=== PATIENT | female | born 1970 | race Hispanic/Latino ===

== ENCOUNTER 2016-11-15 07:27 | Emergency (ER) | payer OTHER ==
[~2016-11-15] VITALS: Ht 165.1 cm; Wt 104.3 kg
[~2016-11-15 07:27] MED LIST: ANTIVERT 25 MG25 MG PO; CELECOXIB200 M1 PO; DILTIAZEM HCL240 MG PO; ESTRACE 1MG TABL1 MG PO; ESTRACE0.5 MG PO; FENOFIBRIC ACI135 MG PO; FOLIC ACID 1 MG PO; GABAPENTIN300 M2 PO; HYDROMORPHONE HC4 M1 PO; HYDROMORPHONE HY4 MG PO; ISONIAZID300 MG PO; LUPRON DEPOT3.75 MG IM; MEDROL4 M2 PO; METAXALONE800 MG PO; METHOTREXATE2.5 M2 PO; MIRTAZAPINE30 M2 PO; MORPHINE SULFAT15 MG PO; MORPHINE SULFAT60 M4 PO; MS CONTIN60 MG PO; MULTIVITAMIN1 TAB PO; NAPROSYN500 M1 PO; OTEZLA30 M2 PO; PRISTIQ ER100 MG PO; PROAIR HFA8.5 GM INH; PROGESTERONE PO; SILVADENE20 GM TOP; SULFASALAZINE500 M2 PO; TEMAZEPAM30 M1 PO; TEMAZEPAM30 MG PO; VALIUM5 M2 PO; VYTORIN 10 MG-41 TAB PO; ZITHROMAX250 M2 PO; ZOFRAN4 M1 PO
[2016-11-15 07:31] VITALS: BP 141/83
--- NOTE | 2016-11-15 07:45 | ED INFLUENZA/URI COMPLAINT ---
History of Present Illness General Chief Complaint: Upper Respiratory Sx/Fever Stated Complaint: ?URI Source: patient Exam Limitations: no limitations Vital Signs & Intake/Output Vital Signs & Intake/Output Vital Signs Date Time Temp Pulse Resp B/P Pulse O2 O2 Flow FiO2 Ox Delivery Rate 11/15 0731 98.4 106 20 141/83 97 Room Air Allergies Coded Allergies: Penicillins (Intermediate, RASH 07/25/16) Reconcile Medications Apremilast (Otezla) 30 MG TABLET 1 TAB PO BID UNKNOWN (Reported) Azithromycin (Zithromax) 250 MG TABLET 1 DP PO AD BRONCHITIS 2 the first day followed by 1 for days 2-5 Celecoxib 200 MG CAPSULE 1 CAP PO DAILY PRN PAIN (Reported) Desvenlafaxine Succinate (Pristiq ER) 100 MG TAB.ER.24H 1 TAB PO EOD MENTAL HEALTH (Reported) Diazepam (Valium) 5 MG TABLET 1 TAB PO QPM SLEEP (Reported) DILTIAZEM HCL (Diltiazem 24HR ER) 240 MG CAP.ER.24H 1 CAP PO DAILY HEART ( Reported) Ezetimibe/Simvastatin (Vytorin 10 MG-40 MG) 1 TAB TAB 1 TAB PO DAILY CHOLESTEROL (Reported) Gabapentin 300 MG CAPSULE 1 CAP PO TID PRN UNKNOWN (Reported) Hydromorphone HCl 4 MG TABLET 1-2 TAB PO Q4P PRN PAIN (Reported) Mirtazapine 30 MG TABLET 1 TAB PO QPM SLEEP (Reported) Morphine Sulfate 15 MG TAB 1-2 TAB PO Q4-6 PRN PRN PAIN (Reported) Ms Contin (Morphine Sulfate ER) 60 MG TABLET.ER 2 TAB PO BID PAIN (Reported) Robitussin AC (Guaifenesin-Codeine Syrup) 200 MG-20 MG/10 ML LIQUID 10 ML PO Q6 PRN COUGH Sulfasalazine 500 MG TABLET 2 TAB PO BID TB (Reported) Temazepam 30 MG CAPSULE 1 CAP PO QPM SLEEP (Reported) Triage Note: PT STATES SHE HAS BEEN RUNNING A FEVER, SHE IS CONGESTED AND HAS A SORE THROAT SINCE YESTERDAY. PT AFEBRILE IN TRIAGE Triage Nurses Notes Reviewed? yes Onset: Abrupt Duration: day(s): (2) Timing: multiple episodes today Severity: moderate Modifying Factors: Worsens With: other (COUGH). Associated Symptoms: cough, sore throat HPI: This is a 46-year-old female presents via her chief complaint of fever, cough, sore throat and shortness of breath that started yesterday morning. Fever up to 100.6 at home. She was taking Tylenol day yesterday but didn't take it today. She states that when she tries to cough her throat is exquisitely painful. Positive sick contacts with her daughter who is sinusitis. No recent travel. History of latent TB which was previously treated. No high fevers or bodyaches. Past History Travel History Traveled to [place] past 21 day No Medical History Any Pertinent Medical History? 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 No Review of Systems Review of Systems Constitutional: Reports: chills, fever. EENTM: Reports: throat pain. Respiratory: Reports: cough, short of breath, sputum production. Cardiovascular: Denies: chest pain, palpitations. GI: Denies: abdominal pain, diarrhea, vomiting. Genitourinary: Reports: no symptoms. Musculoskeletal: Reports: no symptoms. Skin: Reports: no symptoms. Neurological/Psychological: Reports: no symptoms. Hematologic/Endocrine: Denies: bruising, bleeding, polyuria, polydipsia. Immunologic/Allergic: Denies: splenectomy. All Other Systems: Reviewed and Negative Physical Exam Physical Exam General Appearance: well developed/nourished, alert, awake Head: atraumatic, normal appearance Eyes: Bilateral: normal appearance, PERRL, EOMI. Ears, Nose, Throat: hearing grossly normal, Tympanic normal, pharyngeal erythema Neck: normal inspection, supple, full range of motion Respiratory: normal breath sounds, chest non-tender, no respiratory distress Cardiovascular: regular rate/rhythm Peripheral Pulses: 2+ radial (R), 2+ radial (L) Gastrointestinal: normal bowel sounds, soft, non-tender Back: normal inspection, normal range of motion Extremities: normal inspection, normal capillary refill, normal range of motion, no edema Neurologic/Psych: no motor/sensory deficits, awake, alert, oriented x 3 Skin: intact, normal color, warm/dry Core Measures Severe Sepsis Present: No Septic Shock Present: No Progress Differential Diagnosis: pneumonia, pharyngitis Plan of Care: Orders Procedure Date/time Status THROAT CULTURE W/QUICK STREP 11/15 0734 Active Initial ED EKG: none Departure Departure Time of Disposition: 758 Disposition: HOME OR SELF CARE Condition: Stable Clinical Impression Primary Impression: URI (upper respiratory infection) Referrals: YASIR SZYMANSKI DO (PCP/Family) Additional Instructions: Take ibuprofen as directed for pain and fever. Fill the prescriptions as directed. Departure Forms: Customer Survey General Discharge Information Prescriptions: Current Visit Scripts Azithromycin (Zithromax) 1 DP PO AD #6 TAB 2 the first day followed by 1 for days 2-5 Robitussin AC (Guaifenesin-Codeine Syrup) 10 ML PO Q6 PRN COUGH #150 ML
[2016-11-15] MEDS ORDERED: GUAIFENESIN-COD10 ML PO (08:00)
[2016-11-15] MEDS ORDERED: ZITHROMAX250 M2 PO (08:00)
== END 2016-11-15 08:05 ==
LOC: ERH 07:27
DX: J06.9 Acute upper respiratory infection, unspecified (principal); Z87.891 Personal history of nicotine dependence
CPT/HCPCS: 96372; J1885

== ENCOUNTER 2017-01-17 13:46 | Emergency (ER) | payer OTHER ==
[~2017-01-17] VITALS: Ht 165.1 cm; Wt 102.5 kg
[~2017-01-17 13:46] MED LIST changes: +GUAIFENESIN-COD10 ML PO
--- NOTE | 2017-01-17 15:05 | ED GI/GU/ABDOMINAL COMPLAINT ---
History of Present Illness General Chief Complaint: Low Back Pain/Injury Stated Complaint: L LOWER BACK PAIN RADIATING TO R SIDE Source: patient Exam Limitations: no limitations Vital Signs & Intake/Output Vital Signs & Intake/Output Vital Signs Date Time Temp Pulse Resp B/P Pulse O2 O2 Flow FiO2 Ox Delivery Rate 01/17 1622 99.4 82 20 148/88 96 Room Air 01/17 1525 99 Room Air 01/17 1428 99.2 77 20 153/107 98 Room Air Allergies Coded Allergies: Penicillins (Intermediate, RASH 07/25/16) Reconcile Medications Apremilast (Otezla) 30 MG TABLET 1 TAB PO BID UNKNOWN (Reported) Azithromycin (Zithromax) 250 MG TABLET 1 DP PO AD BRONCHITIS 2 the first day followed by 1 for days 2-5 Celecoxib 200 MG CAPSULE 1 CAP PO DAILY PRN PAIN (Reported) Ciprofloxacin HCl (Cipro) 500 MG TABLET 1 TAB PO BID PRN UTI Desvenlafaxine Succinate (Pristiq ER) 100 MG TAB.ER.24H 1 TAB PO EOD MENTAL HEALTH (Reported) Diazepam (Valium) 5 MG TABLET 1 TAB PO QPM SLEEP (Reported) DILTIAZEM HCL (Diltiazem 24HR ER) 240 MG CAP.ER.24H 1 CAP PO DAILY HEART ( Reported) Ezetimibe/Simvastatin (Vytorin 10 MG-40 MG) 1 TAB TAB 1 TAB PO DAILY CHOLESTEROL (Reported) Gabapentin 300 MG CAPSULE 1 CAP PO TID PRN UNKNOWN (Reported) Hydromorphone HCl 4 MG TABLET 1-2 TAB PO Q4P PRN PAIN (Reported) Ketorolac Tromethamine 10 MG TABLET 1 TAB PO TID PRN PAIN RECEIVED IM IN ER Mirtazapine 30 MG TABLET 1 TAB PO QPM SLEEP (Reported) Morphine Sulfate 15 MG TAB 1-2 TAB PO Q4-6 PRN PRN PAIN (Reported) Ms Contin (Morphine Sulfate ER) 60 MG TABLET.ER 2 TAB PO BID PAIN (Reported) Robitussin AC (Guaifenesin-Codeine Syrup) 200 MG-20 MG/10 ML LIQUID 10 ML PO Q6 PRN COUGH Sulfasalazine 500 MG TABLET 2 TAB PO BID TB (Reported) Temazepam 30 MG CAPSULE 1 CAP PO QPM SLEEP (Reported) Triage Note: RECEIVED 46 YO FEMALE C/O LEFT LOWER BACK PAIN RADIATING TO HIP AND RIGHT LOWER BACK, X 2 TO 3 DAYS. PAIN WORSE WITH ALL MOVEMENT. PT REPORTS URINE IS VERY DARK WITH SOME BURNING WITH URINATION Triage Nurses Notes Reviewed? yes ? N Is pt currently ? No Onset: Gradual Duration: constant Timing: recent history Quality/Severity: burning, moderate Severity Numbers: 5 Radiation: back Activities at Onset: none HPI: Patient is a 46-year-old female with a past medical history of chronic back pain and multiple lumbar spine surgical intervention and lasts surgical intervention was approximately 20 years ago with a lumbar spine fusion where patient states for the past 3-4 days she has been complaining of gradual onset of left-sided back pain and increased frequency of urination and urge of urination and dysuria where she states that today she had a brief episode of paresthesia in the bottom of her foot however this has resolved. Patient denies any mechanism injury denies any abdominal pain fever chills vaginal bleeding or discharge Patient is able tolerate by mouth and is been taking Motrin and Tylenol with minimal relief of symptoms (ENA CHAMPAGNE) Past History Travel History Traveled to [place] past 21 day No Medical History Any Pertinent Medical History? 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 No (ENA CHAMPAGNE) Review of Systems Review of Systems Constitutional: Reports: no symptoms. EENTM: Reports: no symptoms. Respiratory: Reports: no symptoms. Cardiovascular: Reports: no symptoms. GI: Reports: no symptoms. Genitourinary: Reports: see HPI, frequency, pain. Musculoskeletal: Reports: see HPI, back pain. Skin: Reports: no symptoms. Neurological/Psychological: Reports: see HPI, paresthesia. Hematologic/Endocrine: Reports: no symptoms. Immunologic/Allergic: Reports: no symptoms. All Other Systems: Reviewed and Negative (ENA CHAMPAGNE) Physical Exam Physical Exam General Appearance: no apparent distress, alert, comfortable Gastrointestinal: normal bowel sounds, soft, non-tender Comments: Well-developed well-nourished person in no acute distress HEENT: Normal EENT exam, Neck: Supple, no lymphadenopathy, normal range of motion without pain or tenderness Back: Left lateral muscular point tenderness, decreased active range of motion noted No CVA tenderness Cardiovascular: Regular rate and rhythms no murmurs rubs or gallops, normal JVP Respiratory: Chest nontender. No respiratory distress.breath sounds clear to auscultation bilaterally Abdomen: Soft, nontender nondistended, no appreciable organomegaly. Normal bowel sounds. No ascites Extremity: No edema, no calf tenderness to palpation, normal and equal pulses. Bilateral lower extremity myotomes dermatomes intact Neuro: Alert oriented x3, motor sensory normal, Skin: No appreciable rash on exposed skin, skin is warm and dry. Psych: Mood and affect is normal, memory and judgment is normal. Core Measures ACS in differential dx? No Severe Sepsis Present: No Septic Shock Present: No (INESSA AVALOS,ENA) Progress Differential Diagnosis: AAA, AMI, appendicitis, biliary colic, bowel obstruction , colon cancer, cholecystitis, diverticulitis, ectopic , endometritis, esophageal varices, gastritis, hepatitis, hernia, hemorrhoids, ischemic bowel, inflamm bowel dis, intrauterine , kidney stone, Joy-Shlomo tear, ovarian cyst, ovarian torsion, pancreatitis, PID/cervicitis, peptic ulcer, PUD/ GERD, perforated viscous, SBO, threatened AB, UTI/pyelo Plan of Care: Orders Procedure Date/time Status COMPREHENSIVE METABOLIC PANEL 01/17 1532 Complete CBC WITHOUT DIFFERENTIAL 01/17 1532 Complete CULTURE,URINE 01/17 1430 Active URINE 01/17 1430 Complete URINALYSIS 01/17 1430 Complete Current Medications Sig/Fátima Start time Last Medication Dose Stop Time Status Admin Ketorolac 30 MG ONCE ONE 01/17 1545 CAN Tromethamine 01/17 1546 (Toradol) Laboratory Tests 01/17/17 1551: Anion Gap 13, Estimated GFR > 60, BUN/Creatinine Ratio 20.0, Glucose 102 H, Calcium 9.5, Total Bilirubin 0.4, AST 20, ALT 37, Alkaline Phosphatase 97, Total Protein 8.0, Albumin 4.5, Globulin 3.5, Albumin/Globulin Ratio 1.3, CBC w Diff NO MAN DIFF REQ, RBC 5.11, MCV 85.0, MCH 28.1, RDW 13.7, MPV 7.2 L, Gran % 67.0 , Lymphocytes % 25.2, Monocytes % 6.8, Eosinophils % 0.2, Basophils % 0.8, Absolute Granulocytes 6.1, Absolute Lymphocytes 2.3, Absolute Monocytes 0.6, Absolute Eosinophils 0, Absolute Basophils 0.1, PUBS MCHC 33.1, Urinalysis LIGHT H, Urine Color YEL, Urine Clarity HAZY H, Urine pH 6.0, Ur Specific [place] 1.020, Urine Protein NEG, Urine Ketones NEG, Urine Nitrite NEG, Urine Bilirubin NEG, Urine Urobilinogen 0.2, Ur Leukocyte Esterase SMALL H, Ur Microscopic SEDIMENT EXAMINED, Urine RBC RARE, Urine WBC 3-5 H, Ur Epithelial Cells MOD H, Urine Bacteria MOD H, Urine Mucus MOD H, Urine Hemoglobin NEG, Urine Glucose NEG, Urine Test NEGATIVE Microbiology 01/17 1551 URINE ROUT: Urine Culture - RECD Patient on examination had no abdominal pain on palpation Patient has no CVA tenderness however patient does have reproducible pain upon lumbar spine movements and left lateral muscular point tenderness Patient does have urinary tract symptoms and which cultures pending My suspicion of pyelonephritis is low however patient will be treated with ciprofloxacin for UTI Upon discharge patient looks well no apparent distress and will comply with discharge instructions and had no questions (ENA CHAMPAGNE) Initial ED EKG: none (ENA CHAMPAGNE) Departure Departure Disposition: HOME OR SELF CARE Condition: Stable Clinical Impression Primary Impression: UTI (urinary tract infection) Secondary Impressions: Back pain Referrals: YASIR SZYMANSKI DO (PCP/Family) Additional Instructions: As discussed begin the prescription of ciprofloxacin as directed for the full course, begin the prescription ketorolac for pain and inflammation. In 5 days follow-up with your BULK RECEIVER for further evaluation treatment. If symptoms worsen return to emergency room. Begin icing the back directly 20 minutes every 2 hours for pain and inflammation. Prescription is waiting at [facility] pharmacy IN [place]. 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 I have also reviewed all the pertinent lab results and diagnostic results. I agree with the findings and the plan of care as documented in the PA's/SCOOPING MACHINE TENDER's documentation. [X] I have reviewed the ED Record and agree with the PA's/SCOOPING MACHINE TENDER's documentation. [] Additions or exceptions (if any) to the PAs/SCOOPING MACHINE TENDER's note and plan are summarized below: [] (SURJIT TEMPLETON,HANNAH)
[2017-01-17 16:08] LABS: ABSOLUTE BASOPHIL COUNT 0.1 /CUMM (0.0-0.2); ABSOLUTE EOSINOPHIL COUNT 0 /CUMM (0.0-0.7); ABSOLUTE GRANULOCYTE CT 6.1 /CUMM (1.4-6.5); ABSOLUTE LYMPH COUNT 2.3 /CUMM (1.2-3.4); ABSOLUTE MONOCYTE COUNT 0.6 /CUMM (0.10-0.60); BASOPHIL % 0.8 % (0.0-2.0); EOSINOPHIL % 0.2 % (0-5); HEMATOCRIT 43.4 % (37-47); MEAN CORPUSCULAR HGB 28.1 PG (27.0-31.0); MEAN CORPUSCULAR HGB CONC 33.1 G/DL (33.0-37.0); MEAN PLATELET VOLUME 7.2 FL (7.4-10.4); PLATELET COUNT 317 /CUMM (130-400); RBC DISTRIBUTION WIDTH 13.7 % (11.5-14.5); RED BLOOD CELL CT 5.11 /CUMM (4.20-5.40)
[2017-01-17 16:22] VITALS: BP 148/88
[2017-01-17] MEDS ORDERED: CIPRO500 M1 PO (16:39)
[2017-01-17] MEDS ORDERED: KETOROLAC TROME10 M1 PO (16:39)
== END 2017-01-17 16:48 ==
LOC: ERH 13:46
PROVIDERS: Physician Assistant
DX: N39.0 Urinary tract infection, site not specified (principal)
CPT/HCPCS: 81001; 81025; 87086; 96374; J1885

== ENCOUNTER 2017-11-20 20:14 | Emergency (ER) | payer OTHER ==
[~2017-11-20 20:14] MED LIST changes: +CIPRO500 M1 PO; +KETOROLAC TROME10 M1 PO
[2017-11-20 21:35] LABS: ABSOLUTE BASOPHIL COUNT 0 /CUMM (0.0-0.2); ABSOLUTE EOSINOPHIL COUNT 0.1 /CUMM (0.0-0.7); ABSOLUTE GRANULOCYTE CT 2.9 /CUMM (1.4-6.5); ABSOLUTE LYMPH COUNT 4.2 /CUMM (1.2-3.4); ABSOLUTE MONOCYTE COUNT 0.5 /CUMM (0.10-0.60); BASOPHIL % 0.6 % (0.0-2.0); EOSINOPHIL % 1.1 % (0-5); GRANULOCYTE % 37.9 % (42.2-75.2); HEMATOCRIT 41.9 % (37-47); MEAN CORPUSCULAR HGB 28.3 PG (27.0-31.0); MEAN CORPUSCULAR HGB CONC 33.6 G/DL (33.0-37.0); MEAN CORPUSCULAR VOLUME 84.1 FL (81.0-99.0); MEAN PLATELET VOLUME 6.5 FL (7.4-10.4); PLATELET COUNT 371 /CUMM (130-400); RBC DISTRIBUTION WIDTH 13.4 % (11.5-14.5); RED BLOOD CELL CT 4.98 /CUMM (4.20-5.40); WHITE BLOOD CELL COUNT 7.7 /CUMM (4.8-10.8)
--- NOTE | 2017-11-20 21:41 | RADIOLOGY REPORT ---
EXAMINATION: XR CHEST CLINICAL INFORMATION: Compromised immune system. Pneumonia. COMPARISON: Chest radiography 07/01/2016. TECHNIQUE: 2 views of the chest were obtained. FINDINGS: No new significant abnormality is noted involving the heart, lungs, mediastinum, bony thorax or soft tissues. IMPRESSION: No evidence of pneumonia. No significant interval change compared to prior chest radiography.
--- NOTE | 2017-11-20 22:09 | ED INFLUENZA/URI COMPLAINT ---
History of Present Illness General Chief Complaint: General Adult Stated Complaint: "I HAVE LATEN TB" Source: patient, old records Exam Limitations: no limitations Vital Signs & Intake/Output Vital Signs & Intake/Output Vital Signs Date Time Temp Pulse Resp B/P B/P Pulse O2 O2 Flow FiO2 Mean Ox Delivery Rate 11/20 2137 98 11/20 2028 98.6 79 22 156/97 96 Allergies Coded Allergies: Penicillins (Intermediate, RASH 07/25/16) Reconcile Medications Apremilast (Otezla) 30 MG TABLET 1 TAB PO BID UNKNOWN (Reported) Azithromycin (Zithromax) 250 MG TABLET 1 DP PO AD BRONCHITIS 2 the first day followed by 1 for days 2-5 Celecoxib 200 MG CAPSULE 1 CAP PO DAILY PRN PAIN (Reported) Ciprofloxacin HCl (Cipro) 500 MG TABLET 1 TAB PO BID PRN UTI Desvenlafaxine Succinate (Pristiq ER) 100 MG TAB.ER.24H 1 TAB PO EOD MENTAL HEALTH (Reported) Diazepam (Valium) 5 MG TABLET 1 TAB PO QPM SLEEP (Reported) DILTIAZEM HCL (Diltiazem 24HR ER) 240 MG CAP.ER.24H 1 CAP PO DAILY HEART ( Reported) Ezetimibe/Simvastatin (Vytorin 10 MG-40 MG) 1 TAB TAB 1 TAB PO DAILY CHOLESTEROL (Reported) Gabapentin 300 MG CAPSULE 1 CAP PO TID PRN UNKNOWN (Reported) Hydromorphone HCl 4 MG TABLET 1-2 TAB PO Q4P PRN PAIN (Reported) Ketorolac Tromethamine 10 MG TABLET 1 TAB PO TID PRN PAIN RECEIVED IM IN ER Mirtazapine 30 MG TABLET 1 TAB PO QPM SLEEP (Reported) Morphine Sulfate 15 MG TAB 1-2 TAB PO Q4-6 PRN PRN PAIN (Reported) Ms Contin (Morphine Sulfate ER) 60 MG TABLET.ER 2 TAB PO BID PAIN (Reported) Robitussin AC (Guaifenesin-Codeine Syrup) 200 MG-20 MG/10 ML LIQUID 10 ML PO Q6 PRN COUGH Sulfasalazine 500 MG TABLET 2 TAB PO BID TB (Reported) Temazepam 30 MG CAPSULE 1 CAP PO QPM SLEEP (Reported) Triage Note: PER PT RECIEVED CENZIA X 2 ON WEDNESDAY WOKE UP THIS AM WITH CHESST DISCOMFORT, AND FEELING RUN DOWN ? OF FEVER, PT HAS LATENT TB X 5 YRS AND WAS TOLD CENZIA CAN LOWER IMMUNE SYSTEM Triage Nurses Notes Reviewed? yes Onset: 2 days Duration: day(s):, constant, continues in ED Timing: recent history Severity: moderate Prior Episodes/Possible Cause: illness exposure No Modifying Factors: none Associated Symptoms: cough, fever/chills, lightheadedness, muscle aches, nasal congestion, nasal drainage LMP (ages 10-50): post menopausal : No Patient currently breastfeeds: No HPI: 5 days prior to admission patient received 2 injections for psoriatic arthritis (braulio). 2 days prior to admission patient complains of nasal congestion nonproductive cough anorexia myalgia chills chest discomfort with cough similar to previous pneumonia and intrascapular pain. She denies fever shortness breath headache dysuria rash bleeding. Past History Travel History Traveled to [place] past 21 day No Medical History Any Pertinent Medical History? 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 No Review of Systems Review of Systems Constitutional: Reports: see HPI, chills, malaise. EENTM: Reports: see HPI, nasal congestion, throat pain. Respiratory: Reports: see HPI, cough. Denies: sputum production. Cardiovascular: Reports: no symptoms. GI: Reports: see HPI. Genitourinary: Reports: no symptoms. Musculoskeletal: Reports: see HPI, muscle pain. Skin: Reports: no symptoms. Neurological/Psychological: Reports: no symptoms. Hematologic/Endocrine: Reports: no symptoms. Immunologic/Allergic: Reports: see HPI, other. All Other Systems: Reviewed and Negative Physical Exam Physical Exam General Appearance: well developed/nourished, alert, awake, anxious, mild distress, obese Head: atraumatic, normal appearance Eyes: Bilateral: normal appearance, PERRL, EOMI. Ears, Nose, Throat: moist mucous membrane, Tympanic normal, nasal congestion, nasal drainage, pharyngeal erythema Neck: normal inspection, supple, full range of motion, trachea midline, lymphadenopathy (R), lymphadenopathy (L) Respiratory: normal breath sounds, chest non-tender, no respiratory distress, quiet respiration, lungs clear Cardiovascular: regular rate/rhythm, normal peripheral pulses, norml femoral pulses equa Peripheral Pulses: 4+ carotid (R), 4+ carotid (L) Gastrointestinal: normal bowel sounds, soft, non-tender, no organomegaly Back: normal inspection, normal range of motion, no vertebral tenderness Extremities: normal inspection, normal capillary refill, normal range of motion, no edema Neurologic/Psych: no motor/sensory deficits, awake, alert, oriented x 3, normal gait, normal mood/affect, microsoft bi architect II-XII nml as tested Reflexes: 2+: bicep (R), bicep (L). Skin: intact, normal color, warm/dry Lymphatic: adenopathy Core Measures Sepsis Present: No Sepsis Focused Exam Completed? No Progress Differential Diagnosis: influenza, pneumonia, pharyngitis, sinusitis Plan of Care: Orders Procedure Date/time Status Add-on Test (ER Only) 11/20 2141 Active EKG 11/20 2141 Active TROPONIN LEVEL 11/20 2124 Complete RAPID VIRAL INFLUENZA A 11/20 2113 Complete COMPREHENSIVE METABOLIC PANEL 11/20 2113 Complete CBC WITHOUT DIFFERENTIAL 11/20 2113 Complete Current Medications Sig/Fátima Start time Last Medication Dose Stop Time Status Admin Ibuprofen 600 MG ONCE ONE 11/20 2229 AC (Motrin) 11/20 2230 Oseltamivir Phosphate 75 MG ONCE ONE 11/20 2229 UNVr (Tamiflu 75MG) 11/20 2230 Prednisone 60 MG ONCE ONE 11/20 2229 AC 11/20 2230 Laboratory Tests 11/20/172124: Anion Gap 11, Estimated GFR > 60, BUN/Creatinine Ratio 23.3, Glucose 108 H, Calcium 9.7, Total Bilirubin 0.2, AST 42 H, ALT 82 H, Alkaline Phosphatase 115 , Troponin I < 0.01, Total Protein 7.7, Albumin 4.7, Globulin 3.0, Albumin/ Globulin Ratio 1.6, CBC w Diff NO MAN DIFF REQ, RBC 4.98, MCV 84.1, MCH 28.3, MCHC 33.6, RDW 13.4, MPV 6.5 L, Gran % 37.9 L, Lymphocytes % 54.0 H, Monocytes % 6.4, Eosinophils % 1.1, Basophils % 0.6, Absolute Granulocytes 2.9, Absolute Lymphocytes 4.2 H, Absolute Monocytes 0.5, Absolute Eosinophils 0.1, Absolute Basophils 0 Microbiology 11/20 2136 NASOPHARYN: Influenza Virus A & B Rapid Smear - COMP Diagnostic Imaging: Viewed by Me: Radiology Read. Discussed w/RAD: Radiology Read. CXR Impression: no acute abnormality, no infiltrates, normal size heart, normal mediastinum Initial ED EKG: normal axis, normal intervals, normal p-waves, normal QRS complex, normal sinus rhythm, no ST T wave changes Rhythm Strip: normal sinus rhythm Departure Departure Time of Disposition: 2225 Disposition: HOME OR SELF CARE Condition: Stable Clinical Impression Primary Impression: Acute viral syndrome Referrals: Sy Martinez DO (PCP/Family) Departure Forms: Customer Survey General Discharge Information Prescriptions: Current Visit Scripts Oseltamivir Phosphate (Tamiflu) 1 CAP PO BID #10 CAP Albuterol Sulfate (Proair Hfa) 2 PUF INH Q4-6 PRN PRN cough, sob #1 INHAL Codeine Phosphate/Guaifenesi (Cheratussin AC Syrup) 5-10 ML PO Q6P PRN cough #240 ML Ibuprofen 1 TAB PO Q6PRN PRN pain #50 TAB with food
[2017-11-20] MEDS ORDERED: PROAIR HFA8.5 GM INH (22:28)
[2017-11-20] MEDS ORDERED: CHERATUSSIN AC118 M1 PO (22:28)
[2017-11-20] MEDS ORDERED: TAMIFLU75 M1 PO (22:28)
[2017-11-20] MEDS ORDERED: IBUPROFEN600 M1 PO (22:28)
[2017-11-20 22:37] VITALS: BP 125/71
== END 2017-11-20 22:44 ==
LOC: ERH 20:14
PROVIDERS: Emergency Medicine
DX: B34.9 Viral infection, unspecified (principal)
CPT/HCPCS: 1263; 71046; 87804; 87804-59; 93005; 93010

== ENCOUNTER 2017-11-23 10:17 | Emergency (ER) | payer OTHER ==
[~2017-11-23] VITALS: Ht 165.1 cm; Wt 104.3 kg
[~2017-11-23 10:17] MED LIST changes: +CHERATUSSIN AC118 M1 PO; +IBUPROFEN600 M1 PO; +TAMIFLU75 M1 PO
--- NOTE | 2017-11-23 13:05 | ED GENERAL ADULT ---
History of Present Illness General Chief Complaint: General Adult Stated Complaint: COUGHING UP BLOOD Source: patient Exam Limitations: no limitations Vital Signs & Intake/Output Vital Signs & Intake/Output Vital Signs Date Time Temp Pulse Resp B/P B/P Pulse O2 O2 Flow FiO2 Mean Ox Delivery Rate 11/23 1418 98.0 88 18 121/70 98 Room Air 11/23 1039 97.6 91 18 142/89 97 Room Air Room Air Allergies Coded Allergies: Penicillins (Intermediate, RASH 11/23/17) Reconcile Medications Albuterol Sulfate (Proair Hfa) 90 MCG HFA.AER.AD 2 PUF INH Q4-6 PRN PRN cough, sob Apremilast (Otezla) 30 MG TABLET 1 TAB PO BID UNKNOWN (Reported) Azithromycin (Zithromax) 250 MG TABLET 1 DP PO AD BRONCHITIS 2 the first day followed by 1 for days 2-5 Azithromycin (Zithromax) 250 MG TABLET 1 DP PO AD bronchitis 2 the first day followed by 1 for days 2-5 Celecoxib 200 MG CAPSULE 1 CAP PO DAILY PRN PAIN (Reported) Ciprofloxacin HCl (Cipro) 500 MG TABLET 1 TAB PO BID PRN UTI Codeine Phosphate/Guaifenesi (Cheratussin AC Syrup) 10 MG-100 MG/5 ML LIQUID 5 -10 ML PO Q6P PRN cough Desvenlafaxine Succinate (Pristiq ER) 100 MG TAB.ER.24H 1 TAB PO EOD MENTAL HEALTH (Reported) Diazepam (Valium) 5 MG TABLET 1 TAB PO QPM SLEEP (Reported) DILTIAZEM HCL (Diltiazem 24HR ER) 240 MG CAP.ER.24H 1 CAP PO DAILY HEART ( Reported) Ezetimibe/Simvastatin (Vytorin 10 MG-40 MG) 1 TAB TAB 1 TAB PO DAILY CHOLESTEROL (Reported) Gabapentin 300 MG CAPSULE 1 CAP PO TID PRN UNKNOWN (Reported) Hydromorphone HCl 4 MG TABLET 1-2 TAB PO Q4P PRN PAIN (Reported) Ibuprofen 600 MG TABLET 1 TAB PO Q6PRN PRN pain with food Ketorolac Tromethamine 10 MG TABLET 1 TAB PO TID PRN PAIN RECEIVED IM IN ER Mirtazapine 30 MG TABLET 1 TAB PO QPM SLEEP (Reported) Morphine Sulfate 15 MG TAB 1-2 TAB PO Q4-6 PRN PRN PAIN (Reported) Ms Contin (Morphine Sulfate ER) 60 MG TABLET.ER 2 TAB PO BID PAIN (Reported) Oseltamivir Phosphate (Tamiflu) 75 MG CAPSULE 1 CAP PO BID influenza Prednisone 50 MG TABLET 1 TAB PO DAILY bronchitis Robitussin AC (Guaifenesin-Codeine Syrup) 200 MG-20 MG/10 ML LIQUID 10 ML PO Q6 PRN COUGH Sulfasalazine 500 MG TABLET 2 TAB PO BID TB (Reported) Temazepam 30 MG CAPSULE 1 CAP PO QPM SLEEP (Reported) Triage Note: PT TO ED WITH C/O "MY LUNGS WERE HURTING CAME IN ON WEDNESDAY, HAD TREATMENTS, YESTERDAY WOKE UP WORSE COUGH CONGESTION, HAD NEGATIVE FLU ON WEDNESDAY". TODAY COUGHING UP BLOOD. Triage Nurses Notes Reviewed? yes Onset: Abrupt Duration: day(s): (4), constant Timing: recent history Injury Environment: home No Modifying Factors: none HPI: 47-year-old female that was recently started on cimzia for her psoriatic arthritis this past started off in chest pain this past Wednesday. She reports that she's been coughing up blood. Denies any vomiting. Denies any fever. Nothing seems to make the symptoms better or worse. Denies any other associated symptoms. She reports that she has a history of latent tuberculosis that was treated some time back. (Sidney Rollins) Past History Travel History Traveled to [place] past 21 day No Medical History Any Pertinent Medical History? see below for history Neurological: NONE EENT: NONE Cardiovascular: hypertension, hyperlipidemia Respiratory: LATENT TB - treated 2 years ago Gastrointestinal: NONE Hepatic: NONE Renal: NONE Musculoskeletal: psoariatic arthritis, COMPRESSED DISKS Psychiatric: NONE Endocrine: NONE Blood Disorders: NONE Cancer(s): NONE REGISTERED PHARMACIST/Reproductive: NONE Other Medical Hx: PSORIATIC ARTHRITIS, LATENT TB Surgical History Surgical History: GASTRIC BANDING LOW BACK SURGERY 2 back surgeries - discectomy , fusion Psychosocial History What is your primary language Serbian Tobacco Use: Quit >30 days ago ETOH Use: denies use Illicit Drug Use: denies illicit drug use Family History Hx Contributory? No (Sidney Rollins) Review of Systems Review of Systems Constitutional: Reports: no symptoms. EENTM: Reports: no symptoms. Respiratory: Reports: see HPI. Cardiovascular: Reports: no symptoms. GI: Reports: no symptoms. Genitourinary: Reports: no symptoms. Musculoskeletal: Reports: no symptoms. Skin: Reports: no symptoms. Neurological/Psychological: Reports: no symptoms. Hematologic/Endocrine: Reports: see HPI. Immunologic/Allergic: Reports: no symptoms. All Other Systems: Reviewed and Negative (Sidney Rollins) Physical Exam Physical Exam General Appearance: well developed/nourished, no apparent distress, alert, awake Head: atraumatic, normal appearance Eyes: Bilateral: normal appearance, EOMI. Ears, Nose, Throat: normal ENT inspection, hearing grossly normal Neck: normal inspection Respiratory: normal breath sounds, no respiratory distress Cardiovascular: regular rate/rhythm Back: normal inspection Extremities: normal inspection Neurologic/Psych: awake, alert, oriented x 3, normal gait Skin: intact, normal color Core Measures ACS in differential dx? No CVA/TIA Diagnosis: No Sepsis Present: No Sepsis Focused Exam Completed? No (Sidney Rollins) Progress Differential Diagnoses I considered the following diagnoses in my evaluation of the patient: Pulmonary embolism, pneumonia, tuberculosis, vasculitis, Plan of Care: Orders Procedure Date/time Status TROPONIN LEVEL 11/23 1259 Complete D-DIMER 11/23 1259 Complete COMPREHENSIVE METABOLIC PANEL 11/23 1259 Complete CBC WITHOUT DIFFERENTIAL 11/23 1259 Complete EKG 11/23 1259 Active Laboratory Tests 11/23/17 1349: Anion Gap 8, Estimated GFR > 60, BUN/Creatinine Ratio 18.6, Glucose 97, Calcium 9.9, Total Bilirubin 0.3, AST 15, ALT 41, Alkaline Phosphatase 90, Troponin I < 0.01, Total Protein 6.9, Albumin 4.2, Globulin 2.7, Albumin/Globulin Ratio 1.6, D-Dimer High Sensitivty < 200, CBC w Diff NO MAN DIFF REQ, RBC 4.80, MCV 84.4, MCH 28.3, MCHC 33.5, RDW 13.4, MPV 6.4 L, Gran % 45.5, Lymphocytes % 46.1, Monocytes % 6.3, Eosinophils % 1.3, Basophils % 0.8, Absolute Granulocytes 3.2, Absolute Lymphocytes 3.2, Absolute Monocytes 0.4, Absolute Eosinophils 0.1, Absolute Basophils 0.1 Initial ED EKG: normal sinus rhythm, rate (69) Comments: 11/23/2017 3:14:45 PM I spoke with the patient's head bookkeeper Dr. curtis . Patient had a negative quantitative serum cold tests a month ago on 10/21/2017. I spoke with DrQuang from [facility] as well as Dr. kay. [facility] MD is also in agreement is that this is a very low risk for tuberculosis and patient does not need to be in isolation precautions and from the standpoint of TB does not require further workup. D-dimer negative. Patient's symptoms are likely consistent with bronchitis. Started on Z-Mark and prednisone. Follow-up with PCP. Negative flu swab. Patient understands and agrees with plan of care. (Norris AVALOS,Sidney) Departure Departure Disposition: HOME OR SELF CARE Condition: Stable Clinical Impression Primary Impression: Bronchitis Referrals: Sy Martinez DO (PCP/Family) Additional Instructions: Take prednisone and Z-Mark as prescribed. Follow-up with your primary care doctor. Return if any other concerns worsening symptoms. Please go over all results of today's visit with your primary care doctor. Contact your primary care doctor to let them know you were here in the emergency room. There may be nonspecific findings which may not be related to your visit today here in the emergency room but may require further evaluation and chronic monitoring by your primary care doctor. If you had a laceration today the chance of foreign body always remains. You should follow-up with your primary care doctor for recheck in 3-5 days for a wound check. If you had an x-ray done there is a chance that a fracture could have been missed on initial read and you should follow-up with your primary care doctor for repeat x-rays if symptoms persist. If your blood pressure was elevated here in the emergency room please have rechecked by [facility] primary care doctor within the next 48. If you were prescribed a narcotic here in the emergency room or any type of controlled substances you're not allowed to drive while taking this medication or operate any type of heavy machinery. Narcotics can make you feel lightheaded dizziness nausea and can cause constipation. You may need to corn picker a stool softener. Thank you for choosing [facility] emergency room. Please return to the emergency room immediately if you have any other concerns worsening of symptoms. Departure Forms: Customer Survey General Discharge Information Prescriptions: Current Visit Scripts Prednisone 1 TAB PO DAILY #5 TAB Azithromycin (Zithromax) 1 DP PO AD #6 TAB 2 the first day followed by 1 for days 2-5 (Sidney Rollins) PA/TAR HEATER OPERATOR Co-Sign Statement Statement: ED Attending supervision documentation- I saw and evaluated the patient. I have also reviewed all the pertinent lab results and diagnostic results. I agree with the findings and the plan of care as documented in the PA's/TAR HEATER OPERATOR's documentation. X I have reviewed the ED Record and agree with the PA's/TAR HEATER OPERATOR's documentation. [] Additions or exceptions (if any) to the PAs/TAR HEATER OPERATOR's note and plan are summarized below: [] (Christal TEMPLETON,Noah) Critical Care Note Critical Care Note Critical Care Time: non-applicable (Sidney Rollins)
[2017-11-23 14:05] LABS: ABSOLUTE BASOPHIL COUNT 0.1 /CUMM (0.0-0.2); ABSOLUTE EOSINOPHIL COUNT 0.1 /CUMM (0.0-0.7); ABSOLUTE GRANULOCYTE CT 3.2 /CUMM (1.4-6.5); ABSOLUTE LYMPH COUNT 3.2 /CUMM (1.2-3.4); ABSOLUTE MONOCYTE COUNT 0.4 /CUMM (0.10-0.60); BASOPHIL % 0.8 % (0.0-2.0); EOSINOPHIL % 1.3 % (0-5); GRANULOCYTE % 45.5 % (42.2-75.2); HEMATOCRIT 40.5 % (37-47); MEAN CORPUSCULAR HGB 28.3 PG (27.0-31.0); MEAN CORPUSCULAR HGB CONC 33.5 G/DL (33.0-37.0); MEAN CORPUSCULAR VOLUME 84.4 FL (81.0-99.0); MEAN PLATELET VOLUME 6.4 FL (7.4-10.4); PLATELET COUNT 348 /CUMM (130-400); RBC DISTRIBUTION WIDTH 13.4 % (11.5-14.5); WHITE BLOOD CELL COUNT 6.9 /CUMM (4.8-10.8)
[2017-11-23 14:18] VITALS: BP 121/70
[2017-11-23] MEDS ORDERED: PREDNISONE50 M1 PO (14:57)
[2017-11-23] MEDS ORDERED: ZITHROMAX250 M2 PO (14:57)
== END 2017-11-23 16:05 ==
LOC: ERH 10:17
PROVIDERS: Physician Assistant Medical
DX: J40 Bronchitis, not specified as acute or chronic (principal); Z87.891 Personal history of nicotine dependence; R07.9 Chest pain, unspecified
CPT/HCPCS: 93005; 93010